=== PATIENT | female | born 1950 | race Caucasian/White ===

== ENCOUNTER 2023-09-09 11:09 | Outpatient (CLI) | payer MEDICARE ==
[2023-09-06 13:16] LABS: ALBUMIN 3.5 G/DL (3.4-5.0); ANION GAP 11 (8-16); BLOOD UREA NITROGEN 13 MG/DL (7-18); BUN/CREATININE RATIO 21.3 (10.0-20.0); CHLORIDE 106 MMOL/L (99-107); CREATININE 0.61 MG/DL (0.40-0.90); GLUCOSE 97 MG/DL (70-104); POTASSIUM 3.9 MMOL/L (3.5-5.1); SODIUM 143 MMOL/L (135-145); TOTAL CARBON DIOXIDE 25.6 MMOL/L (24-32); eGFR > 90 ML/MIN
[2023-09-09] MEDS ORDERED: iohexol 350MG/ML 100ml bottle IV ONE (11:47)
== END 2023-09-09 23:59 | disposition home or self-care (01) ==
LOC: RAD 11:09
PROVIDERS: ATTEND Student in an Organized Health Care Education/Training Program
DX: N20.0 Calculus of kidney (principal); R16.0 Hepatomegaly, not elsewhere classified; K40.90 Unilateral inguinal hernia, without obstruction or gangrene, not specified as recurrent; R31.29 Other microscopic hematuria
CPT/HCPCS: 36415; 74178; 80048; J3490; Q9967